=== PATIENT | female | born 1990 | race Caucasian/White ===

== ENCOUNTER 2016-12-01 14:00 | Emergency (ER) | payer OTHER ==
--- NOTE | 2016-12-01 14:07 | ED CRITICAL CARE ---
History of Present Illness General Chief Complaint: Cardiopulmonary Resuscitation Stated Complaint: BIBA CPR Source: old records, EMS Exam Limitations: clinical condition Vital Signs & Intake/Output Vital Signs & Intake/Output None Allergies Uncoded Allergies: Allergy Other BEESTINGS Food Allergies NKA Med Allergies DENIES Triage Nurses Notes Reviewed? yes Onset: Just prior to arrival Duration: minute(s):, constant, continues in ED Timing: recent history Injury Environment: home Severity: severe Method of Injury: overdose LMP (ages 10-50): unknown : No Patient currently breastfeeds: No HPI: 15 minutes prior to admission patient last seen normal. Her family found her unresponsive not breathing. EMS called CPR started. EMS responded with ACS protocol. There was a 60 minute treatment travel time. She is had a problem with opiate addiction. Family reports no fever chills nausea vomiting diarrhea abdominal pain chest pain shortness breath headache dysuria rash bleeding suicidal ideation. Past History Travel History Traveled to [place] past 21 day No Medical History Any Pertinent Medical History? see below for history Surgical History Surgical History: non-contributory Psychosocial History What is your primary language Albanian Family History Hx Contributory? No Review of Systems Review of Systems Constitutional: Reports: no symptoms. Eyes: Reports: no symptoms. Ears, Nose, Throat, Mouth: Reports: no symptoms. Respiratory: Reports: no symptoms. Cardiovascular: Reports: no symptoms. Gastrointestinal/Abdominal: Reports: no symptoms. Genitourinary: Reports: no symptoms. Musculoskeletal: Reports: no symptoms. Skin: Reports: no symptoms. Neurological/Psychological: Reports: no symptoms. All Other Systems: Reviewed and Negative Comments Family reports no complaints Physical Exam Physical Exam General Appearance: severe distress, obese Head: atraumatic, normal appearance Eyes: Bilateral: other (fixed dilated). Ears, Nose, Throat, Mouth: moist mucous membrane Neck: normal inspection Respiratory: no spontaneous respiration Cardiovascular: no heart sounds Peripheral Pulses: 0 carotid (R), 0 carotid (L), 0 femoral (R), 0 femoral (L) Gastrointestinal: soft, non-tender, no organomegaly Back: normal inspection Extremities: no ligament instability Neurologic/Psych: abnormal [employer] II-XII, motor/sensory deficits Skin: pallor Core Measures ACS in differential dx? Yes ASA ordered for poss ACS? No-ACS ruled out CVA/TIA Diagnosis: No Severe Sepsis Present: No Septic Shock Present: No Progress Differential Diagnoses I considered the following diagnoses in my evaluation of the patient: Opiate overdose asystole Plan of Care: Pronounced 2:02 PM Initial ED EKG: none Comments: packaged completed ME contacted and will investigate Family notified Departure Departure Time of Disposition: 1401 Disposition: Condition: Stable Clinical Impression Primary Impression: Narcotic overdose Qualifiers: Encounter type: initial encounter Injury intent: undetermined intent Qualified Code: T40.604A - Poisoning by unspecified narcotics, undetermined, initial encounter Secondary Impressions: Asystole Referrals: JAZMYNE HOBSON (PCP/Family) Departure Forms: General Discharge Information Procedures Ultrasound Ultrasound: no cardiac activity Critical Care Note Critical Care Note Critical Care Time: 30-74 min (35)
== END 2016-12-01 14:02 | disposition expired ==
LOC: ERH 14:00
DX: T50.901A Poisoning by unspecified drugs, medicaments and biological substances, accidental (unintentional), initial encounter (principal); I46.9 Cardiac arrest, cause unspecified
CPT/HCPCS: 1387; 94799